=== PATIENT | female | born 1980 | race Caucasian/White ===

== ENCOUNTER 2020-06-23 18:06 | Emergency (ER) | payer MEDICAID ==
[~2020-06-23] VITALS: Ht 154.9 cm; Wt 95.5 kg
[~2020-06-23 18:06] MED LIST: IBUP-1222 PO; OXYC-302 PO
[2020-06-23 18:16] VITALS: BP 153/94
--- NOTE | 2020-06-23 18:22 | NUR ---
PATIENT WALKED BACK FROM TRIAGE WITH CHIEF C/O LEFT BIG TOE PAIN. PATIENT "KICKED SOME CRATES LAST WEEK" AND PAIN HAS GOTTEN WORSE. PAIN LEVEL NOW IS 8/10. PATIENT IS ABLE TO MOVE TOE, BUT IT HURTS. NO SIGNS OF ACUTE DISTRESS, CONNECTED TO VITALS MACHINE, CALL LIGHT WITHIN REACH.
--- NOTE | 2020-06-23 18:35 | NUR ---
ER PROVIDER AT BEDSIDE FOR EVALUATION.
[2020-06-23] MEDS ORDERED: IBUPROFEN 600 MG TABLET PO ONE (19:00)
[2020-06-23] MEDS ORDERED: IBUPROFEN 600 MG TABLET ONE (19:34)
== END 2020-06-23 20:09 | disposition home or self-care (01) ==
LOC: ED 20:07
DX: S92.415A Nondisplaced fracture of proximal phalanx of left great toe, initial encounter for closed fracture (principal); F17.200 Nicotine dependence, unspecified, uncomplicated; W22.8XXA Striking against or struck by other objects, initial encounter; Y93.89 Activity, other specified; Y92.89 Other specified places as the place of occurrence of the external cause; Y99.8 Other external cause status
CPT/HCPCS: 99283